=== PATIENT | female | born 1950 | race African-American/Black ===

== ENCOUNTER 2016-04-02 11:57 | Inpatient (IN) | payer MEDICARE, MEDICAID ==
[~2016-04-02] VITALS: Ht 157.5 cm; Wt 85.7 kg
[~2016-04-02 11:57] MED LIST: ASPI81TA2 PO; FOLI0.8T2 PO; NIFE-2 PO; SUCR500T PO
[2016-04-02] MEDS ORDERED: HYDROCODONE/APAP 5/325MG 1 EACH TABLET ONE (12:53)
[2016-04-02] MEDS ORDERED: ONDANSETRON 4 MG TAB.RAPDIS ONE (12:53)
[2016-04-02 12:54] LABS: BASOPHILS % (AUTO) 0.5 % (0.0-2.0); DIFF TOTAL % 100 %; EOSINOPHILS # (AUTO) 0.1 /CMM (0.0-0.7); HEMATOCRIT 26 % (33-45); HEMOGLOBIN 8.1 g/dL (11.5-14.8); LYMPHOCYTES # (AUTO) 1.1 /CMM (0.8-4.8); LYMPHOCYTES % (AUTO) 14.5 % (20.0-44.0); MEAN CORPUSCULAR HEMOGLOBIN 32 PG (26.0-33.0); MEAN CORPUSCULAR HGB CONC 31 g/dl (31.0-36.0); MEAN CORPUSCULAR VOLUME 102 fL (82-100); MONOCYTES # (AUTO) 0.4 /CMM (0.1-1.30); NEUTROPHILS # (AUTO) 5.8 /CMM (1.8-8.9); PLATELET COUNT (AUTO) 216 /CMM (150-450); RED BLOOD CELL COUNT(AUTO) 2.53 MIL/uL (4.0-5.2); WHITE BLOOD COUNT (AUTO) 7.4 K/uL (4.3-11.0)
[2016-04-02] MEDS ORDERED: ONDANSETRON HCL/PF 4 MG/2 ML VIAL IV ONE (13:00)
[2016-04-02] MEDS ORDERED: MORPHINE SULFATE INJ 2 MG/ML DISP.SYRIN IV ONE (13:00)
[2016-04-02] MEDS ORDERED: HYDROCODONE/APAP 5/325MG 1 EACH TABLET PO ONE (13:00)
[2016-04-02] MEDS ORDERED: ONDANSETRON 4 MG TAB.RAPDIS SL ONE (13:00)
[2016-04-02 13:08] LABS: ALBUMIN 3.6 g/dL (3.4-5.0); BILIRUBIN,DIRECT 0.2 mg/dL (0.0-0.2); BILIRUBIN,TOTAL 0.6 mg/dL (0.2-1.0); CALCIUM, SERUM 9.5 mg/dL (8.5-10.1); INDIRECT BILIRUBIN 0.4 mg/dL (0.0-1.1); TOTAL PROTEIN, SERUM 7.5 g/dL (6.4-8.2)
[2016-04-02 13:10] LABS: CREATININE 12.4 mg/dL (0.6-1.3); POTASSIUM 6.3 mmol/L (3.5-5.1)
[2016-04-02] MEDS ORDERED: DEXTROSE 50%-WATER 50 ML DISP.SYRIN IVP ONE (14:00)
[2016-04-02] MEDS ORDERED: INSULIN REGULAR, HUMAN 100 UNIT/ML 10 ML VIAL IV ONE (14:00)
[2016-04-02] MEDS ORDERED: INSULIN REGULAR, HUMAN 100 UNIT/ML 10 ML VIAL ONE (14:32)
[2016-04-02] MEDS ORDERED: DEXTROSE 50%-WATER 50 ML DISP.SYRIN ONE (14:32)
[2016-04-02] MEDS ORDERED: CALC667C6 PO (14:39)
[2016-04-02] MEDS ORDERED: CINA30TA PO (14:39)
[2016-04-02] MEDS ORDERED: SEVE800T8 PO (14:39)
[2016-04-02 15:54] VITALS: BP 111/54
[2016-04-02 16:00] VITALS: BP 111/54
[2016-04-02] MEDS ORDERED: Z GUARD REMEDY 2 OZ OINT TP PRN (16:30)
[2016-04-02] MEDS ORDERED: ONDANSETRON HCL/PF 4 MG/2 ML VIAL IVP PRN (16:30)
[2016-04-02] MEDS ORDERED: ACETAMINOPHEN 325 MG TABLET PO PRN (16:30)
[2016-04-02] MEDS ORDERED: ZOLPIDEM TARTRATE 5 MG TABLET PO PRN (16:30)
[2016-04-02] MEDS ORDERED: SODIUM POLYSTYRENE SULFONATE 15 G/60 ML BOTTLE PO ONE (17:00)
[2016-04-02] MEDS ORDERED: MORPHINE SULFATE INJ 2 MG/ML DISP.SYRIN IV PRN (17:00)
[2016-04-02] MEDS: SEVELAMER CARBONATE 800 MG TABLET PO SCH (17:45)
[2016-04-02] MEDS: CALCIUM ACETATE 667 MG TABLET PO SCH (17:45)
[2016-04-02 20:00] VITALS: BP 147/63
[2016-04-03] VITALS: BP 131/76
[2016-04-03 05:10] VITALS: BP 141/85
[2016-04-03 08:00] VITALS: BP 162/90
[2016-04-03] MEDS: VIT B CMPLX 3/FA/VIT C/BIOTIN 1 TAB TABLET PO SCH (08:41)
[2016-04-03] MEDS: PANTOPRAZOLE 40 MG TABLET.DR PO SCH (08:42)
[2016-04-03] MEDS: SEVELAMER CARBONATE 800 MG TABLET PO SCH ×3 (08:42→17:49)
[2016-04-03] MEDS: CALCIUM ACETATE 667 MG TABLET PO SCH ×3 (08:42→17:49)
[2016-04-03] MEDS ORDERED: LIDOCAINE 1%-EPI 1:100,000 20 ML VIAL TP ONE ×2 (10:00→12:30)
[2016-04-03 16:00] VITALS: BP 130/70
[2016-04-03] MEDS ORDERED: CLONIDINE HCL 0.1 MG TABLET PO PRN (17:00)
[2016-04-03 17:58] LABS: CALCIUM, SERUM 8.6 mg/dL (8.5-10.1); POTASSIUM 4.6 mmol/L (3.5-5.1)
[2016-04-03 17:59] LABS: CREATININE 8.8 mg/dL (0.6-1.3)
[2016-04-03 18:02] LABS: PHOSPHORUS 6.5 mg/dL (2.5-4.9)
[2016-04-03 18:08] LABS: LACTIC ACID 1.5 mmol/L (0.4-2.0)
[2016-04-03 18:49] LABS: BASOPHILS % (AUTO) 0.2 % (0.0-2.0); DIFF TOTAL % 100 %; EOSINOPHILS % (AUTO) 0.2 % (0.0-6.0); HEMATOCRIT 38 % (33-45); HEMOGLOBIN 12.1 g/dL (11.5-14.8); LYMPHOCYTES # (AUTO) 0.4 /CMM (0.8-4.8); MEAN CORPUSCULAR HEMOGLOBIN 32 PG (26.0-33.0); MEAN CORPUSCULAR HGB CONC 32 g/dl (31.0-36.0); MEAN CORPUSCULAR VOLUME 101 fL (82-100); MONOCYTES # (AUTO) 0.3 /CMM (0.1-1.30); MONOCYTES % (AUTO) 4.3 % (2.0-12.0); NEUTROPHILS # (AUTO) 5.8 /CMM (1.8-8.9); NEUTROPHILS % (AUTO) 89.3 % (43.0-81.0); PLATELET COUNT (AUTO) 127 /CMM (150-450); RED BLOOD CELL COUNT(AUTO) 3.76 MIL/uL (4.0-5.2); WHITE BLOOD COUNT (AUTO) 6.5 K/uL (4.3-11.0)
[2016-04-03] MEDS: HYDROCODONE/APAP 5/325MG 1 EACH TABLET PO PRN (19:44)
[2016-04-03 20:00] VITALS: BP 134/71
[2016-04-04 07:02] LABS: CALCIUM, SERUM 8.9 mg/dL (8.5-10.1); CREATININE 7.4 mg/dL (0.6-1.3); POTASSIUM 4.4 mmol/L (3.5-5.1)
[2016-04-04 07:49] LABS: BASOPHILS % (AUTO) 0.3 % (0.0-2.0); DIFF TOTAL % 100 %; EOSINOPHILS # (AUTO) 0.1 /CMM (0.0-0.7); LYMPHOCYTES % (AUTO) 13.8 % (20.0-44.0); MEAN CORPUSCULAR HEMOGLOBIN 33 PG (26.0-33.0); MEAN CORPUSCULAR HGB CONC 33 g/dl (31.0-36.0); MEAN CORPUSCULAR VOLUME 102 fL (82-100); MONOCYTES # (AUTO) 0.4 /CMM (0.1-1.30); MONOCYTES % (AUTO) 5.7 % (2.0-12.0); NEUTROPHILS # (AUTO) 5.7 /CMM (1.8-8.9); NEUTROPHILS % (AUTO) 78.2 % (43.0-81.0); PLATELET COUNT (AUTO) 156 /CMM (150-450); WHITE BLOOD COUNT (AUTO) 7.3 K/uL (4.3-11.0)
[2016-04-04 08:00] VITALS: BP 121/61
[2016-04-04 08:00] LABS: RED BLOOD CELL COUNT(AUTO) 1.97 MIL/uL (4.0-5.2)
[2016-04-04] MEDS: SEVELAMER CARBONATE 800 MG TABLET PO SCH ×3 (08:01→17:29)
[2016-04-04] MEDS: PANTOPRAZOLE 40 MG TABLET.DR PO SCH (08:01)
[2016-04-04] MEDS: VIT B CMPLX 3/FA/VIT C/BIOTIN 1 TAB TABLET PO SCH (08:01)
[2016-04-04] MEDS: CALCIUM ACETATE 667 MG TABLET PO SCH ×3 (08:01→17:29)
[2016-04-04 08:03] LABS: HEMATOCRIT 20 % (33-45); HEMOGLOBIN 6.5 g/dL (11.5-14.8)
[2016-04-04 08:46] LABS: DIFF TOTAL % 100 %; EOSINOPHILS # (AUTO) 0.1 /CMM (0.0-0.7); EOSINOPHILS % (AUTO) 1.6 % (0.0-6.0); HEMATOCRIT 22 % (33-45); LYMPHOCYTES % (AUTO) 13.1 % (20.0-44.0); MEAN CORPUSCULAR HEMOGLOBIN 32 PG (26.0-33.0); MEAN CORPUSCULAR HGB CONC 31 g/dl (31.0-36.0); MEAN CORPUSCULAR VOLUME 102 fL (82-100); MONOCYTES # (AUTO) 0.5 /CMM (0.1-1.30); MONOCYTES % (AUTO) 6.3 % (2.0-12.0); NEUTROPHILS # (AUTO) 5.9 /CMM (1.8-8.9); PLATELET COUNT (AUTO) 178 /CMM (150-450); RED BLOOD CELL COUNT(AUTO) 2.12 MIL/uL (4.0-5.2); WHITE BLOOD COUNT (AUTO) 7.4 K/uL (4.3-11.0)
[2016-04-04 08:54] LABS: HEMOGLOBIN 6.8 g/dL (11.5-14.8)
[2016-04-04 09:50] LABS: KETONES,URINE NEGATIVE (NEGATIVE); LEUKOCYTE ESTERASE ,URINE 2+ (NEGATIVE); PH,URINE 8.5 (5.0-8.0)
[2016-04-04 09:59] LABS: ADD UA MICROSCOPIC YES
[2016-04-04 13:00] LABS: ADD URINE CULTURE YES; WBC,URINE 21-50 /HPF (0-3)
[2016-04-04 13:22] LABS: LYMPHOCYTES % (MANUAL) 11 % (16-48)
[2016-04-04 16:00] VITALS: BP 138/76
[2016-04-04] MEDS ORDERED: IV NS 0.9% 250 ML IV ONE (17:09)
[2016-04-04] MEDS ORDERED: BLOOD IV SET 1 EA INFUS.SET MC ONE (17:09)
[2016-04-04 20:00] VITALS: BP 117/55
[2016-04-04 20:15] VITALS: BP 116/57
[2016-04-04 20:17] VITALS: BP 109/51
[2016-04-04 20:45] VITALS: BP 117/48
[2016-04-05 08:00] VITALS: BP 110/69
[2016-04-05] MEDS: SEVELAMER CARBONATE 800 MG TABLET PO SCH ×3 (08:30→18:00)
[2016-04-05] MEDS: CALCIUM ACETATE 667 MG TABLET PO SCH ×3 (08:30→18:00)
[2016-04-05] MEDS: PANTOPRAZOLE 40 MG TABLET.DR PO SCH (08:30)
[2016-04-05] MEDS: VIT B CMPLX 3/FA/VIT C/BIOTIN 1 TAB TABLET PO SCH (08:31)
[2016-04-05 11:13] LABS: BASOPHILS % (AUTO) 0.5 % (0.0-2.0); DIFF TOTAL % 100 %; EOSINOPHILS # (AUTO) 0.1 /CMM (0.0-0.7); HEMATOCRIT 23 % (33-45); HEMOGLOBIN 7.4 g/dL (11.5-14.8); LYMPHOCYTES # (AUTO) 1.1 /CMM (0.8-4.8); MEAN CORPUSCULAR HEMOGLOBIN 32 PG (26.0-33.0); MEAN CORPUSCULAR HGB CONC 32 g/dl (31.0-36.0); MEAN CORPUSCULAR VOLUME 98 fL (82-100); MONOCYTES # (AUTO) 0.6 /CMM (0.1-1.30); MONOCYTES % (AUTO) 7.4 % (2.0-12.0); NEUTROPHILS # (AUTO) 5.6 /CMM (1.8-8.9); NEUTROPHILS % (AUTO) 75.1 % (43.0-81.0); PLATELET COUNT (AUTO) 183 /CMM (150-450); RED BLOOD CELL COUNT(AUTO) 2.33 MIL/uL (4.0-5.2); WHITE BLOOD COUNT (AUTO) 7.4 K/uL (4.3-11.0)
[2016-04-05 12:00] LABS: CALCIUM, SERUM 8.9 mg/dL (8.5-10.1); POTASSIUM 4.3 mmol/L (3.5-5.1)
[2016-04-05 16:00] VITALS: BP 119/70
[2016-04-05 20:00] VITALS: BP 131/74
[2016-04-06 08:00] VITALS: BP 151/75
[2016-04-06] MEDS: PANTOPRAZOLE 40 MG TABLET.DR PO SCH (08:31)
[2016-04-06] MEDS: SEVELAMER CARBONATE 800 MG TABLET PO SCH ×2 (08:31→12:23)
[2016-04-06] MEDS: VIT B CMPLX 3/FA/VIT C/BIOTIN 1 TAB TABLET PO SCH (08:31)
[2016-04-06] MEDS: CALCIUM ACETATE 667 MG TABLET PO SCH ×2 (08:31→12:23)
[2016-04-06] MEDS: HYDROCODONE/APAP 5/325MG 1 EACH TABLET PO PRN (08:33)
[2016-04-06 16:00] VITALS: BP 141/76
== END 2016-04-06 18:00 | DRG 391 ==
LOC: ER 12:01 → TELE 15:04 → MED 04-03 18:14
PROVIDERS: ADMIT Internal Medicine; ATTEND Internal Medicine
PROC: 02PYX3Z Removal of Infusion Device from Great Vessel, External Approach (ICD-10-PCS; principal; 2016-04-03)
PROC: 30233N1 Transfusion of Nonautologous Red Blood Cells into Peripheral Vein, Percutaneous Approach (ICD-10-PCS; 2016-04-04)
PROC: 5A1D60Z (ICD-10-PCS; 2016-04-04)
DX: A08.4 Viral intestinal infection, unspecified (principal); N18.6 End stage renal disease; J18.9 Pneumonia, unspecified organism; J96.00 Acute respiratory failure, unspecified whether with hypoxia or hypercapnia; G93.41 Metabolic encephalopathy; I31.3 Pericardial effusion (noninflammatory); I50.30 Unspecified diastolic (congestive) heart failure; I13.2 Hypertensive heart and chronic kidney disease with heart failure and with stage 5 chronic kidney disease, or end stage renal disease; Z99.2 Dependence on renal dialysis; D63.1 Anemia in chronic kidney disease; K57.30 Diverticulosis of large intestine without perforation or abscess without bleeding; M43.16 Spondylolisthesis, lumbar region; M46.96 Unspecified inflammatory spondylopathy, lumbar region; K43.9 Ventral hernia without obstruction or gangrene; I67.2 Cerebral atherosclerosis; E87.5 Hyperkalemia; D53.9 Nutritional anemia, unspecified; E78.5 Hyperlipidemia, unspecified; D25.9 Leiomyoma of uterus, unspecified; E83.39 Other disorders of phosphorus metabolism; Z91.19 Patient's noncompliance with other medical treatment and regimen; E11.22 Type 2 diabetes mellitus with diabetic chronic kidney disease; F03.90 Unspecified dementia, unspecified severity, without behavioral disturbance, psychotic disturbance, mood disturbance, and anxiety; I25.10 Atherosclerotic heart disease of native coronary artery without angina pectoris; K21.9 Gastro-esophageal reflux disease without esophagitis
CPT/HCPCS: 36415; 70450-TC; 71010-TC; 80048-TC; 80061-TC; 80076-TC; 81000-TC; 83605-TC; 83690-TC; 83735-TC; 83935-TC; 84100-TC; 85025-TC; 86850-TC; 86880-TC; 86921-TC; 87040-TC; 87081-TC; 87086-TC; 90935-TC; 97001-TC; 97116-TC; 97530-TC; A4606; A6402; A6403; J1815; J2270; J3490; J7050; P9016-BL; Q0162; Z7610

== ENCOUNTER 2017-10-21 09:49 | Inpatient (IN) | payer MEDICAID, MEDICARE, OTHER ==
[~2017-10-21] VITALS: Ht 157.5 cm; Wt 63.5 kg
[~2017-10-21 09:49] MED LIST changes: -ASPI81TA2 PO; +CALC667C6 PO; +CINA30TA2 PO; -NIFE-2 PO; +SEVE800T8 PO; -SUCR500T PO
--- NOTE | 2017-10-21 09:52 | NUR ---
Called in wr- patient is in the restroom.
--- NOTE | 2017-10-21 10:20 | NUR ---
BACK PAIN S/P FALL FRIDAY. MISSED HER DIALYSIS TWICE. SEEN BY FOR PABLITO. DAUGHTER AT THE BS. SAFETY AND COMFORT MEASURES PROVIDED. WILL MONITOR.
[2017-10-21] MEDS ORDERED: ACETAMINOPHEN ES 500 MG TABLET PO ONE (10:30)
[2017-10-21] MEDS ORDERED: ACETAMINOPHEN ES 500 MG TABLET ONE (10:33)
[2017-10-21 11:15] LABS: BASOPHILS % (AUTO) 0.6 % (0.0-2.0); EOSINOPHILS % (AUTO) 1.3 % (0.0-6.0); HEMATOCRIT 36 % (33-45); HEMOGLOBIN 11.5 g/dL (11.5-14.8); LYMPHOCYTES # (AUTO) 0.6 /CMM (0.8-4.8); LYMPHOCYTES % (AUTO) 11.7 % (20.0-44.0); MEAN CORPUSCULAR HEMOGLOBIN 32 PG (26.0-33.0); MEAN CORPUSCULAR HGB CONC 32 g/dl (31.0-36.0); MEAN CORPUSCULAR VOLUME 100 fL (82-100); MONOCYTES # (AUTO) 0.5 /CMM (0.1-1.30); MONOCYTES % (AUTO) 10.2 % (2.0-12.0); NEUTROPHILS % (AUTO) 76.2 % (43.0-81.0); PLATELET COUNT (AUTO) 200 /CMM (150-450); RDW COEFFICIENT OF VARIATION 15.8 (11.5-15.0); RED BLOOD CELL COUNT(AUTO) 3.61 MIL/uL (4.0-5.2); WHITE BLOOD COUNT (AUTO) 5.2 K/uL (4.3-11.0)
[2017-10-21 11:25] LABS: POTASSIUM 5.8 mmol/L (3.5-5.1)
[2017-10-21 11:26] LABS: CALCIUM, SERUM 9.2 mg/dL (8.5-10.1)
[2017-10-21 11:27] LABS: CREATININE 14.5 mg/dL (0.6-1.3)
[2017-10-21] MEDS ORDERED: Z GUARD REMEDY 2 OZ OINT TP PRN (13:30)
[2017-10-21] MEDS ORDERED: ACETAMINOPHEN 325 MG TABLET PO PRN (13:30)
[2017-10-21] MEDS ORDERED: ZOLPIDEM TARTRATE 5 MG TABLET PO PRN (13:30)
[2017-10-21] MEDS ORDERED: HYDROCODONE/APAP 5/325MG 1 EACH TABLET PO PRN (13:30)
--- NOTE | 2017-10-21 14:50 | NUR ---
REPORT GIVEN TO JULIO CESAR ZHANG FOR TELE [id number].
--- NOTE | 2017-10-21 15:00 | NUR ---
WIRE PREPARATION MACHINE TENDER OPENING NOTES RECEIVED PATIENT IN STABLE CONDITION. IN NO APPARENT DISTRESS. BEDSIDE RAILS ARE UPX2. BED IS LOCKED AND LOWERED. CALL LIGHT IS WITHIN REACH. IV LINE IS INTACT AND PATENT. WILL CONTINUE TO MONITOR PATIENT.
[2017-10-21 16:00] VITALS: BP 120/74
[2017-10-21] MEDS: HEPARIN SODIUM, PORCINE 5000 UNITS/1 ML VIAL SQ SCH (16:37)
[2017-10-21] MEDS: SEVELAMER CARBONATE 800 MG TABLET PO SCH (17:28)
[2017-10-21] MEDS: CALCIUM ACETATE 667 MG TABLET PO SCH (17:28)
--- NOTE | 2017-10-21 18:15 | NUR ---
HOSPITAL WARD CLERK CLOSING NOTES PATIENT IS IN STABLE CONDITION. IN NO APPARENT DISTRESS. BEDSIDE RAILS ARE UPX2. BED IS LOCKED AND LOWERED. CALL LIGHT IS WITHIN REACH. IV LINE IS INTACT AND PATENT. ALL NEEDS WERE MET. WILL ENDORSE CARE TO LEASING DIRECTOR NURSE FOR VÍCTOR.
--- NOTE | 2017-10-21 18:52 | NUR ---
PATIENT REFUSED DIALYSIS. PATIENT STATES SHE WANTS TO HAVE DIALYSIS WHEN DIALYSIS NURSE BRINGS LIDOCAINE. Addendum: 10/21/17 at 1853 by JULIO CESAR MILLER RN DIALYSIS NURSE STATED HE WILL COME BACK TOMORROW MORNING TO PERFORM DIALYSIS
--- NOTE | 2017-10-21 19:15 | NUR ---
VIDEO GAME DESIGNER INITIAL NOTES Received patient in bed, asleep, but arousable. Breathing even and unlabored. Not in any distress. Tele monitor in place, sinus rhythm 100. As per AM shift RN, patient refused dialysis today. Safety measures in place. Call [place] within reach. Bed in low locked position. Patient stable as endorsed by the morning shift RN. Will monitor accordingly.
[2017-10-21 20:00] VITALS: BP 135/70
[2017-10-21 21:00] VITALS: BP 135/70
--- NOTE | 2017-10-21 23:41 | NUR ---
RN NOTES Patient currently sitting up in chair near bed, watching TV. Patient is alert, oriented x 2. Breathing even and unlabored. Not in any distress. No complaints as of this time. Safety measures in place. Will continue to monitor
[2017-10-22] VITALS: BP 144/65
[2017-10-22 04:00] VITALS: BP 142/71
--- NOTE | 2017-10-22 06:57 | NUR ---
COAL GETTER CLOSING NOTES Patient sitting up in bed, remains stable. Not in any distress. Tele monitor in place, sinus rhythm 96. No complaints as of this time. All needs attended to. All due medications given as ordered. Will endorse VÍCTOR to oncoming RN.
[2017-10-22 08:00] VITALS: BP 135/65
[2017-10-22] MEDS: PANTOPRAZOLE 40 MG TABLET.DR PO SCH (10:39)
[2017-10-22] MEDS: VITAMIN B COMP W-C 1 TAB TABLET PO SCH (10:39)
[2017-10-22] MEDS: SEVELAMER CARBONATE 800 MG TABLET PO SCH ×3 (10:39→17:41)
[2017-10-22] MEDS: CALCIUM ACETATE 667 MG TABLET PO SCH ×3 (10:39→17:40)
[2017-10-22] MEDS: HEPARIN SODIUM, PORCINE 5000 UNITS/1 ML VIAL SQ SCH ×2 (10:41→21:37)
[2017-10-22 16:00] VITALS: BP 120/68
--- NOTE | 2017-10-22 18:00 | NUR ---
alert and oriented x2,cooperative.had dialysis.337 ml fluid removed.up to bathroom with assist,a little unsteady.does not like to use walker.dtr. in to visit.
--- NOTE | 2017-10-22 19:20 | NUR ---
SUPERVISOR PARK WORKERS NOTES RECEIVED PT IN BED, AWAKE, A/O X 2, WITH EPISODES OF FORGETFULNESS AND CONFUSION. REORIENTED PT. NO DISTRESS, NOS OB NOTED AT THIS TIME. ON SR 89 WITH BBB ON TELE MONITOR. IV SITE ON RIGHT WRIST INTACT AND PATENT. LEFT ARM AV SHUNT WITH NO BLEEDING NOTED AT THIS TIME. NO C/O PAIN OR DISCOMFORT AT THIS TIME. ALL NEEDS ATTENDED AND MET. KEPT COMFORTABLE. SAFETY PRECAUTIONS OBSERVED. CALL LIGHT WITHIN REACH. WILL CONT TO MONITOR.
[2017-10-22 20:00] VITALS: BP 168/85
[2017-10-23] VITALS: BP 137/67
[2017-10-23 04:00] VITALS: BP 155/73
--- NOTE | 2017-10-23 06:37 | NUR ---
SHERIFFS NOTES PT IN BED, ASLEEP AT THIS TIME, APPEARS COMFORTABLE. AROUSES EASILY. A/O X 2, VERBALLY RESPONSIVE. WITH EPISODES OF FORGETFULNESS AND CONFUSION. REORIENTED PT. NO DISTRESS, NOR SOB NOTED AT THIS TIME. ON SR 83 ON TELE MONITOR. IV SITE ON RIGHT WRIST INTACT AND PATENT. LEFT ARM AV SHUNT WITH NO BLEEDING NOTED AT THIS TIME. NO C/O PAIN OR DISCOMFORT AT THIS TIME. ALL NEEDS ATTENDED AND MET. KEPT COMFORTABLE. SAFETY PRECAUTIONS OBSERVED. CALL LIGHT WITHIN REACH. WILL ENDORSE TO NEXT SHIFT FOR VÍCTOR.
[2017-10-23 06:44] LABS: CREATININE 10.2 mg/dL (0.6-1.3); POTASSIUM 4.9 mmol/L (3.5-5.1)
--- NOTE | 2017-10-23 07:38 | NUR ---
AIRLINE PILOT/FIRST OFFICER OPENING NOTES RECEIVED PATIENT IN STABLE CONDITION. IN NO APPARENT DISTRESS. BEDSIDE RAILS ARE UPX2. BED IS LOCKED AND LOWERED. CALL LIGHT IS WITHIN REACH. IV LINE IS INTACT AND PATENT. WILL CONTINUE TO MONITOR PATIENT.
[2017-10-23 08:00] VITALS: BP 142/71
[2017-10-23] MEDS: PANTOPRAZOLE 40 MG TABLET.DR PO SCH (08:02)
[2017-10-23] MEDS: VITAMIN B COMP W-C 1 TAB TABLET PO SCH (08:02)
[2017-10-23] MEDS: SEVELAMER CARBONATE 800 MG TABLET PO SCH ×3 (08:02→17:09)
[2017-10-23] MEDS: CALCIUM ACETATE 667 MG TABLET PO SCH ×3 (08:02→17:09)
[2017-10-23] MEDS: HEPARIN SODIUM, PORCINE 5000 UNITS/1 ML VIAL SQ SCH ×2 (08:03→22:53)
[2017-10-23 08:10] LABS: BASOPHILS % (AUTO) 0.5 % (0.0-2.0); HEMATOCRIT 37 % (33-45); HEMOGLOBIN 11.9 g/dL (11.5-14.8); LYMPHOCYTES # (AUTO) 1.1 /CMM (0.8-4.8); LYMPHOCYTES % (AUTO) 18.7 % (20.0-44.0); MEAN CORPUSCULAR HEMOGLOBIN 33 PG (26.0-33.0); MEAN CORPUSCULAR HGB CONC 32 g/dl (31.0-36.0); MEAN CORPUSCULAR VOLUME 103 fL (82-100); MONOCYTES # (AUTO) 0.8 /CMM (0.1-1.30); MONOCYTES % (AUTO) 13.3 % (2.0-12.0); NEUTROPHILS # (AUTO) 3.9 /CMM (1.8-8.9); NEUTROPHILS % (AUTO) 65.5 % (43.0-81.0); PLATELET COUNT (AUTO) 197 /CMM (150-450); RDW COEFFICIENT OF VARIATION 16.6 (11.5-15.0); RED BLOOD CELL COUNT(AUTO) 3.62 MIL/uL (4.0-5.2); WHITE BLOOD COUNT (AUTO) 5.9 K/uL (4.3-11.0)
[2017-10-23 15:55] VITALS: BP 141/78
--- NOTE | 2017-10-23 18:21 | NUR ---
TOILET AND LAUNDRY SOAP SUPERVISOR CLOSING NOTES PATIENT IS IN STABLE CONDITION. IN NO APPARENT DISTRESS. BEDSIDE RAILS ARE UPX2. BED IS LOCKED AND LOWERED. CALL LIGHT IS WITHIN REACH. IV LINE IS INTACT AND PATENT. WILL ENDORSE CARE TO PHYSIOGNOMIST NURSE FOR VÍCTOR.
--- NOTE | 2017-10-23 19:45 | NUR ---
RN OPENING NOTES RECEIVED REPORT FROM DAYSHIFT RN. FOUND Pt ASLEEP IN BED. NO S/S OF ACUTE DISTRESS OR SOB NOTED. EASILY AWAKENED. UNLABORED AND EVEN RESPIRATIONS NOTED WITH EQUAL CHEST RISE AND FALL. IV ACCESS ON R WRIST #22G, SL. L ARM AV SHUNT. POSSIBLE DC TOMORROW WAITING ON PLACEMENT. SAFETY MEASURES IN PLACE. BED LOW, LOCKED, HOB ELEVATED, SIDE RAILS UP, CALL LIGHT AND BEDSIDE TABLE WITHIN REACH. WILL CONTINUE TO MONITOR Pt THROUGHOUT THE NIGHT FOR SAFETY.
[2017-10-23 20:00] VITALS: BP 128/78
[2017-10-24 06:39] LABS: BASOPHILS % (AUTO) 0.5 % (0.0-2.0); EOSINOPHILS % (AUTO) 2.5 % (0.0-6.0); HEMATOCRIT 33 % (33-45); HEMOGLOBIN 10.6 g/dL (11.5-14.8); LYMPHOCYTES # (AUTO) 1.1 /CMM (0.8-4.8); MEAN CORPUSCULAR HEMOGLOBIN 33 PG (26.0-33.0); MEAN CORPUSCULAR HGB CONC 32 g/dl (31.0-36.0); MEAN CORPUSCULAR VOLUME 104 fL (82-100); MONOCYTES # (AUTO) 0.6 /CMM (0.1-1.30); MONOCYTES % (AUTO) 13.2 % (2.0-12.0); NEUTROPHILS % (AUTO) 61.8 % (43.0-81.0); PLATELET COUNT (AUTO) 172 /CMM (150-450); RDW COEFFICIENT OF VARIATION 16.3 (11.5-15.0); RED BLOOD CELL COUNT(AUTO) 3.22 MIL/uL (4.0-5.2); WHITE BLOOD COUNT (AUTO) 4.9 K/uL (4.3-11.0)
[2017-10-24 06:56] LABS: CALCIUM, SERUM 9.2 mg/dL (8.5-10.1); MAGNESIUM 2.9 mg/dL (1.8-2.4); PHOSPHORUS 7.2 mg/dL (2.5-4.9); POTASSIUM 5.1 mmol/L (3.5-5.1)
[2017-10-24 07:01] LABS: CREATININE 8.1 mg/dL (0.6-1.3)
--- NOTE | 2017-10-24 07:29 | NUR ---
RN OPENING NOTES PT. IS IN BED AWAKE, A&OX4. BREATHING UNLABORED, AND EVENLY ON ROOM AIR. NO S/S OF ACUTE DISTRESS. PT. IS RECEIVING HEMODIALYSIS AT BEDSIDE. REVIEWED PT.'S LABS WITH DIALYSIS NURSE. BED IS IN LOWEST, AND LOCKED POSITION. 2 SIDE RAILS UP, AND CALL LIGHT WITHIN REACH. ALL NEEDS MET. WILL CONTINUE TO ASSESS AND MONITOR.
[2017-10-24] MEDS: PANTOPRAZOLE 40 MG TABLET.DR PO SCH (07:30)
[2017-10-24 08:00] VITALS: BP 122/68
[2017-10-24] MEDS: SEVELAMER CARBONATE 800 MG TABLET PO SCH ×2 (08:00→13:00)
--- NOTE | 2017-10-24 08:05 | NUR ---
RN CLOSING NOTES NO SIGNIFICANT CHANGES IN Pt's CONDITION. Pt REMAINS STABLE AT THIS TIME. NO S/S OF ACUTE DISTRESS OR SOB NOTED DURING THE NIGHT. ALL NEEDS MET AND ATTENDED TO. SAFETY MEASURES IN PLACE. ENDORSED TO DAYSHIFT RN FOR Pt's VÍCTOR.
[2017-10-24] MEDS: HEPARIN SODIUM, PORCINE 5000 UNITS/1 ML VIAL SQ SCH (09:20)
[2017-10-24] MEDS: VITAMIN B COMP W-C 1 TAB TABLET PO SCH (09:20)
[2017-10-24] MEDS: CALCIUM ACETATE 667 MG TABLET PO SCH ×2 (09:21→13:00)
--- NOTE | 2017-10-24 09:30 | NUR ---
PT. RECEIVED HEMODIALYSIS WITH 800 CC OUTPUT. POST HD BP 131/58, PULSE 84, AND SPO2 98%.
[2017-10-24] MEDS: ONDANSETRON HCL/PF 4 MG/2 ML VIAL IVP PRN ×2 (11:17→12:11)
--- NOTE | 2017-10-24 11:19 | NUR ---
RN NOTES PT. HAD 2 CONSECUTIVE EPISODES OF VOMITING WITHOUT NAUSEA. PT. WAS OFFERED ZOFRAN TO HELP WITH NAUSEA AND VOMITING AND PT. REFUSED MEDICATION.
--- NOTE | 2017-10-24 12:11 | NUR ---
PT. HAD ANOTHER EPISODE OF VOMITING. PT. AGREED TO RECEIVE ZOFRAN. BEFORE ADMINISTERING PT. DID NOT HAVE HER IV IN THE RIGHT WRIST, PT. STATED THAT THE NURSE PULLED IT OUT. NO S/S OF BLEEDING. PT. WAS EXPLAINED THAT I WILL NEED TO START A NEW IV TO ADMINISTER ZOFRAN. PT. STATED THAT SHE DOES NOT WANT TO A NEW IV STARTED AND THAT SHE DOES NOT WANT THE ZOFRAN.
[2017-10-24] MEDS ORDERED: ONDA4TAB5 PO (14:51)
--- NOTE | 2017-10-24 15:45 | NUR ---
RN NOTES REPORT WAS GIVEN VIA PHONE TO NURSING TENANT RELATIONS COORDINATOR, LUIS AT [facility].
[2017-10-24 16:04] VITALS: BP 113/66
--- NOTE | 2017-10-24 16:07 | NUR ---
BELONGINGS LIST WAS CHECKED AND SIGNED BY ANOTHER NURSE. PT. HAD ONE EARING IN HER LEFT EAR, PER BELONGINGS LIST PT. HAD 2 EARINGS RECORDED. PT. STATED THAT SHE LOST ONE AND THAT SHE WILL BUY ANOTHER PAIR, AND THAT THEY COST ONE DOLLAR.
--- NOTE | 2017-10-24 18:00 | NUR ---
INSULATOR TECHNICIAN PT. WAS DISCHARGED IN STABLE CONDITION. DISCHARGE INSTRUCTIONS WERE GIVEN TO NURSE MAHAD AT [facility]. DISCHARGE PAPERS WERE SIGNED WITH ANOTHER NURSE. BELONGINGS LIST WAS CHECKED AND SIGNED. REPORT WAS GIVEN TO AMBULANCE. ID BAND WAS REMOVED. PT. LEFT IN AN AMBULANCE TO [facility].
--- NOTE | 2017-10-24 19:12 | NUR ---
BARKING MACHINE FEEDER PT. WAS DISCHARGED IN STABLE CONDITION. PT.'S HR WAS ELEVATED 110 BPM PT. WAS GIVEN 0.5 MG OF DILAUDID IVP. REPORT WAS GIVEN VIA PHONE TO PHILIPPE NURSE AT [facility]. DISCHARGE INSTRUCTIONS WERE GIVEN TO PT. AND FAMILY, AND FAMILY VERBALIZED UNDERSTANDING. PT.'S DAUGHTER DAVID TRANSLATED FROM [place] TO [place]. BELONGINGS LIST WAS CHECKED AND SIGNED. IV AND ID WAS REMOVED. REPORT WAS GIVEN TO AMBULANCE. PT. LEFT WITH DISCHARGE PACKET. Addendum: 10/24/17 at 1917 by NATHALY SELF RN NOTES ABOVE ARE FOR A DIFFERENT PT.
== END 2017-10-24 17:41 | DRG 640 ==
LOC: ER 09:51 → TELE 14:23 → MED 10-23 17:42
PROVIDERS: ADMIT Registered Nurse; ATTEND Registered Nurse
PROC: 5A1D70Z Performance of Urinary Filtration, Intermittent, Less than 6 Hours Per Day (ICD-10-PCS; principal; 2017-10-22)
PROC: 5A1D70Z Performance of Urinary Filtration, Intermittent, Less than 6 Hours Per Day (ICD-10-PCS; 2017-10-23)
PROC: 5A1D70Z Performance of Urinary Filtration, Intermittent, Less than 6 Hours Per Day (ICD-10-PCS; 2017-10-24)
DX: E87.5 Hyperkalemia (principal); G93.41 Metabolic encephalopathy; N18.6 End stage renal disease; I12.0 Hypertensive chronic kidney disease with stage 5 chronic kidney disease or end stage renal disease; K21.9 Gastro-esophageal reflux disease without esophagitis; E11.22 Type 2 diabetes mellitus with diabetic chronic kidney disease; D63.1 Anemia in chronic kidney disease; E78.5 Hyperlipidemia, unspecified; I25.10 Atherosclerotic heart disease of native coronary artery without angina pectoris; Z99.2 Dependence on renal dialysis; Z91.81 History of falling; G89.29 Other chronic pain; Z91.19 Patient's noncompliance with other medical treatment and regimen; Z91.15 Patient's noncompliance with renal dialysis; E83.9 Disorder of mineral metabolism, unspecified; M25.512 Pain in left shoulder
CPT/HCPCS: 36415; 71045-TC; 73030-TC; 80048-TC; 83735-TC; 84100-TC; 85025-TC; 87081-TC; 90935-TC; 97116-TC; 97530-TC; A4606; J1644; J2405; Z7610